=== PATIENT | female | born 1990 | race Caucasian/White ===

== ENCOUNTER → 2017-02-20 | Outpatient (CLI) | payer BC ==
[2014-04-13 15:13] VITALS: BP 126/89
--- NOTE | 2017-02-21 08:32 | CT ---
HISTORY: Facial trauma, right side Study: CT facial bones Comparison: None Technique: Multiple axial images of the facial structures were obtained from the mandible to superio r portions of the orbits. Dose reduction techniques including Automated Exposure Control (AEC) and adjustment of mA and kV were utilized. Findings: The visualized intracranial structures are unremarkable. The soft tissues are intact. No facial bone fracture is identified. The orbits and globes appear normal. The visualized paranasal sinuses and m astoid air cells are clear. The mandible is intact.. The skull base and visualized portions of the c ervical spine are intact. IMPRESSION: No facial bone injury identified. Reported By:
== END ==
LOC: RAD 15:04
PROVIDERS: ATTEND Internal Medicine
DX: S09.93XA Unspecified injury of face, initial encounter (principal); X58.XXXA Exposure to other specified factors, initial encounter
CPT/HCPCS: 70486

== ENCOUNTER 2020-06-23 06:19 | Inpatient (IN) ==
[2020-06-23] MEDS ORDERED: BETADINE SOLN ONE (06:27)
[2020-06-23] MEDS ORDERED: PITOCIN ONE (06:27)
[2020-06-23] MEDS ORDERED: D5 1/2 NS 1000 ML 1,000 ML IV ONE (06:27)
[2020-06-23] MEDS ORDERED: D5LR 1L W PITOCIN 10 UNITS/L 10 UNITS/1,000 ML BAG IV ONE (06:28)
[2020-06-23] MEDS ORDERED: D5 1/2 NS 1L W PITOCIN 20 UNITS/L 20 UNITS/1,000 ML BAG IV ONE (06:29)
--- NOTE | 2020-06-23 06:57 | DR.OB ---
OB Quick Note - Assessment/Plan Assessment/Plan: L&D 06/23/20 at 6:50am S-No complaint. O-Afebrile,VSS KWI=[id number] with good LTV, +accel, no decel. CTX=none CVX=3cm/50%/-1/VTX AROM with clear fluid. IUPC and FSE placed. A-IUP at 38 6/7 weeks for induction Rh- GERD Anxiety/depression P-Begin pitocin induction Anticipate
[2020-06-23] MEDS ORDERED: REGLAN INJ 10 MG VIAL IVP PRN (07:26)
[2020-06-23] MEDS ORDERED: D5LR 1L W PITOCIN 10 UNITS/L 10 UNITS/1,000 ML BAG IV PRN (07:26)
[2020-06-23] MEDS ORDERED: NUBAIN INJ 200 MG VIAL MULTIDOSE IVP PRN (07:26)
[2020-06-23] MEDS ORDERED: D5 1/2 NS 1000 ML 1,000 ML IV SCH (07:26)
[2020-06-23] MEDS ORDERED: PITOCIN IVP ONE (07:26)
[2020-06-23] MEDS ORDERED: MORPHINE SULFATE INJ 2 MG INJ IVP PRN (07:26)
[2020-06-23] MEDS ORDERED: PHENERGAN INJ 25 MG IM PRN ×2 (07:26→10:55)
[2020-06-23] MEDS ORDERED: FENTANYL INJ 100 mcg ONE ×2 (08:19→09:50)
[2020-06-23] MEDS ORDERED: LR 1000 ML IV 1,000 ML IV ONE (08:20)
[2020-06-23] MEDS ORDERED: FENTANYL 2 mcg/mL-ROPIV 0.1%-NS EPIDURAL 200 ML EPI ONE (08:20)
[2020-06-23] MEDS ORDERED: AMBIEN PO PRN (11:10)
[2020-06-23] MEDS ORDERED: ADACEL or BOOSTRIX TDaP VACCINE IM ONE (11:10)
[2020-06-23] MEDS ORDERED: HYPERRHO S/D (or RHOGAM) IM PRN (11:10)
[2020-06-23] MEDS ORDERED: DERMOPLAST PAIN RELIEF SPRAY TOP PRN (11:10)
[2020-06-23] MEDS ORDERED: BENADRYL CAP/TAB 25 MG PO PRN (12:49)
[2020-06-23] MEDS ORDERED: BENADRYL INJ 50 MG VIAL IVP PRN (12:49)
[2020-06-23] MEDS ORDERED: BENADRYL CAP/TAB 25 MG PO ONE (12:52)
[2020-06-23] MEDS: D5 1/2 NS 1000 ML 1,000 ML with PITOCIN 20 UNITS IV SCH ×4 (13:06→19:27)
[2020-06-23] MEDS ORDERED: HYPERRHO S/D (or RHOGAM) IM ONE (13:51)
[2020-06-23] MEDS: MOTRIN TAB 800 MG PO PRN (18:10)
[2020-06-24] MEDS: D5 1/2 NS 1000 ML 1,000 ML with PITOCIN 20 UNITS IV SCH ×4 (04:05→11:53)
[2020-06-24] MEDS: MOTRIN TAB 800 MG PO PRN (04:05)
[2020-06-24 04:08] LABS: HEMATOCRIT 28.9 % (36.0-47.0); HEMOGLOBIN 9.9 g/dL (12.0-16.0)
--- NOTE | 2020-06-24 07:15 | DR.OB ---
OB Quick Note - Assessment/Plan Assessment/Plan: Delivery Note DIRECTOR OF PLANNING 06/23/20 at 10:40am Patient complete and pushing. Head delivered over intact perineum. No nuchal cord. Nose and mouth bulb suctioned. Body delivered over intact perineum. Cord clamped x 2 and cut. Infant handed to attendant. Cord sent for gases. Placenta delivered spontaneously / intact / 3 vessel cord. No CVX / vaginal / perineal tears. Viable male infant, VTX/OA, wt=8'1" and 9/9, stable to NBN. Mother stable to RR. FCM=[id number].
[2020-06-24] MEDS ORDERED: PRENATAL PLUS PO SCH (09:00)
[2020-06-24 14:49] VITALS: BP 142/77
== END 2020-06-24 14:10 | disposition home or self-care (01) | DRG 807 ==
LOC: LD 06:19 → MED/SURG 12:16
PROVIDERS: ADMIT Specialist; ATTEND Specialist
DX: F41.9 Anxiety disorder, unspecified; Z01.818 Encounter for other preprocedural examination; O36.0930 Maternal care for other rhesus isoimmunization, third trimester, not applicable or unspecified; Z3A.38 38 weeks gestation of pregnancy; K21.9 Gastro-esophageal reflux disease without esophagitis; Z37.0 Single live birth
CPT/HCPCS: 36415; 59409; 80048; 80307; 81003; 85014; 85018; 85025; 86592; 86850; 86900; 86901; 90715; A4216; A4222; J2590; J2765; J2790; J3010; J7120; S0197; S5010

== ENCOUNTER 2022-06-18 06:32 | Inpatient (IN) ==
[2022-06-18] MEDS ORDERED: D5 1/2 NS 1,000 ML 1,000 ML IV ONE (06:38)
[2022-06-18] MEDS ORDERED: BETADINE SOLN ONE (06:38)
[2022-06-18] MEDS ORDERED: D5 1/2 NS 1,000 mL + PITOCIN 20 UNITS/L IV 20 UNITS/1,000 ML BAG IV ONE (06:39)
[2022-06-18] MEDS ORDERED: D5 LR + PITOCIN 10 UNITS/L 10 UNITS/1,000 ML BAG IV ONE (06:39)
--- NOTE | 2022-06-18 07:18 | DR.OB ---
OB Quick Note - Assessment/Plan Assessment/Plan: L&D 06/18/22 at 7:05am S-No complaint. O-Afebrile,VSs YMD=[id number] with good LTV, +accel, no decel. CTX=occasional, mild CVX=3cm/50%/0/VTX AROM with light meconium. IUPC and FSE placed. A-IUP at 39 1/7 weeks for induction Depression Rh- P-Begin pitocin induction Anticipate
[2022-06-18] MEDS ORDERED: REGLAN INJ 10 MG VIAL IVP PRN (07:23)
[2022-06-18] MEDS ORDERED: PHENERGAN INJ 25 MG IM PRN ×2 (07:23→10:52)
[2022-06-18] MEDS ORDERED: D5 1/2 NS 1,000 ML 1,000 ML IV SCH (07:23)
[2022-06-18] MEDS ORDERED: NUBAIN INJ 200 MG VIAL MULTIDOSE IVP PRN (07:23)
[2022-06-18] MEDS ORDERED: MORPHINE SULFATE INJ 2 MG INJ IVP PRN (07:23)
[2022-06-18] MEDS ORDERED: D5 LR + PITOCIN 10 UNITS/L 10 UNITS/1,000 ML BAG IV PRN (07:23)
[2022-06-18] MEDS ORDERED: PITOCIN IVP ONE (07:23)
[2022-06-18] MEDS ORDERED: STADOL INJ IVP PRN (07:29)
[2022-06-18 07:40] LABS: BILIRUBIN,URINE NEGATIVE (NEGATIVE); BLOOD/HEMOGLOBIN,URINE NEGATIVE (NEGATIVE); GLUCOSE, URINE NEGATIVE (NEGATIVE); KETONES,URINE NEGATIVE (NEGATIVE); LEUKOCYTE ESTERASE ,URINE NEGATIVE (NEGATIVE); NITRITES,URINE NEGATIVE (NEGATIVE); PROTEIN,URINE NEGATIVE (NEGATIVE); UROBILINOGEN,URINE NORMAL (NORMAL)
[2022-06-18 07:54] LABS: APPEARANCE,URINE CLEAR (CLEAR); COLOR,URINE YELLOW (YELLOW)
[2022-06-18 07:56] LABS: BASOPHILS % (AUTO) 0.2 % (0.2-1.0); EOSINOPHILS # (AUTO) 0.1 x10^3/uL (0.0-0.2); HEMATOCRIT 28.6 % (36.0-47.0); HEMOGLOBIN 9.9 g/dL (12.0-16.0); LYMPHOCYTES # (AUTO) 1.8 X10^3/uL (1.3-2.9); LYMPHOCYTES % (AUTO) 15.8 % (21.0-51.0); MEAN CORPUSCULAR HEMOGLOBIN 30.4 pg (27.0-34.0); MEAN CORPUSCULAR HGB CONC 34.5 g/dL (33.0-35.0); MEAN CORPUSCULAR VOLUME 88.4 fL (80.0-100.0); MEAN PLATELET VOLUME 9.4 fL (7.4-11.0); MONOCYTES # (AUTO) 0.8 x10^3/uL (0.3-0.8); MONOCYTES % (AUTO) 6.8 % (0.0-13.0); NEUTROPHILS # (AUTO) 8.6 x10^3/uL (2.2-4.8); NEUTROPHILS % (AUTO) 76.2 % (42.0-75.0); RED BLOOD COUNT 3.24 X10^6/uL (3.5-5.4); RED CELL DISTRIBUTION WIDTH 13.4 % (11.6-16.5); WHITE BLOOD COUNT 11.3 X10^3/uL (3.6-10.0)
[2022-06-18 08:11] LABS: ALANINE AMINOTRANSFERASE 37 Units/L (12-78); ALBUMIN 2.4 g/dL (3.4-5.0); ALKALINE PHOSPHATASE 154 Units/L (46-116); ASPARTATE AMINO TRANSFERASE 18 Units/L (15-37); BLOOD UREA NITROGEN 4 mg/dL (7-18); CALCIUM 8.1 mg/dL (8.5-10.1); CHLORIDE 104 mmol/L (98-107); COR CA(FOR HYPOALB) 9.4 mg/dL (8.5-10.1); COR NA(FOR HYPERGLY) 136 mmol/L (136-145); SODIUM 136 mmol/L (136-145); TOTAL PROTEIN 5.7 g/dL (6.4-8.2); eGFR NON BLACK RACES > 60 (>60)
[2022-06-18] MEDS ORDERED: LR 1,000 ML IV 1,000 ML IV ONE (08:42)
[2022-06-18] MEDS ORDERED: NAROPIN EPIDURAL 0.2% 100 ML ONE (09:29)
[2022-06-18] MEDS ORDERED: FENTANYL VIAL INJ 100 mcg ONE (09:29)
[2022-06-18] MEDS ORDERED: MOTRIN TAB 800 MG PO PRN (10:52)
--- NOTE | 2022-06-18 10:52 | DR.OB ---
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 Head delivered over intact perineum. No nuchal cord. Nose and mouth bulb suctioned. Body delivered over intact perineum. Cord clamped x 2 and cut. Infant handed to attendant. Cord sent for gases. Placenta delivered spontaneously / intact / 3 vessel cord. No CVX / vaginal / perineal tears noted. Viable female infant, VTX/OA, wt=7'1" and 9/10, stable to NBN. Mother stable to RR. ARA=[id number].
[2022-06-18] MEDS: D5 1/2 NS 1,000 ML 1,000 ML with PITOCIN 20 UNITS IV SCH ×4 (11:30→19:45)
[2022-06-18] MEDS: PITOCIN ONE (11:52)
[2022-06-18] MEDS ORDERED: ADACEL or BOOSTRIX TDaP VACCINE IM ONE (12:12)
[2022-06-18] MEDS ORDERED: HYPERRHO S/D (or RHOGAM) IM PRN (12:12)
[2022-06-18] MEDS ORDERED: AMBIEN PO PRN (12:12)
[2022-06-18] MEDS ORDERED: MILK OF MAGNESIA PO PRN (12:12)
[2022-06-18] MEDS ORDERED: DERMOPLAST PAIN RELIEF SPRAY TOP PRN (12:12)
[2022-06-19] MEDS: D5 1/2 NS 1,000 ML 1,000 ML with PITOCIN 20 UNITS IV SCH ×2 (03:26)
[2022-06-19 05:20] LABS: HEMATOCRIT 30.8 % (36.0-47.0); HEMOGLOBIN 10.6 g/dL (12.0-16.0)
[2022-06-19] MEDS ORDERED: POTASSIUM CHLORIDE LIQ 20 MEQ UDC PO PRN (07:05)
[2022-06-19] MEDS ORDERED: K-DUR TAB 20 MEQ PO PRN (07:05)
[2022-06-19] MEDS ORDERED: MICRO K EXTEN CAP 10 MEQ PO PRN (07:05)
[2022-06-19] MEDS ORDERED: K-RIDER 10 MEQ/NS 100 ML 10 MEQ/100 ML BAG IV PRN (07:05)
[2022-06-19] MEDS ORDERED: POTASSIUM CHL 60 MEQ/NS 0.45% 500 ML IV PRN (07:05)
[2022-06-19] MEDS ORDERED: POTASSIUM CHL 40 MEQ/NS 0.45% 500 ML IV PRN (07:05)
[2022-06-19] MEDS ORDERED: KLOR-CON PO PRN (07:05)
[2022-06-19] MEDS ORDERED: PROTONIX TAB 40 MG PO SCH (09:00)
[2022-06-19] MEDS ORDERED: CELEXA PO SCH (09:00)
[2022-06-19] MEDS ORDERED: PRENATAL PLUS PO SCH (09:00)
[2022-06-19 12:56] VITALS: BP 145/80
== END 2022-06-19 14:20 | disposition home or self-care (01) | DRG 807 ==
LOC: LD 06:32 → MED/SURG 12:33
PROVIDERS: ADMIT Specialist; ATTEND Specialist
DX: F32.89 Other specified depressive episodes; Z20.822 Contact with and (suspected) exposure to COVID-19; Z37.0 Single live birth; Z29.13 Encounter for prophylactic Rho(D) immune globulin; Z3A.39 39 weeks gestation of pregnancy; O99.343 Other mental disorders complicating pregnancy, third trimester; O99.613 Diseases of the digestive system complicating pregnancy, third trimester; K21.9 Gastro-esophageal reflux disease without esophagitis